=== PATIENT | female | born 2000 ===

== ENCOUNTER 2023-04-19 08:21 | Outpatient (CLI) | payer OTHER | END 2023-04-19 10:41 | disposition home or self-care (01) | LOC: PRENATAL 08:21 | PROVIDERS: ATTEND Obstetrics & Gynecology Maternal & Fetal Medicine | DX: O36.80X0 Pregnancy with inconclusive fetal viability, not applicable or unspecified (principal); Z3A.14 14 weeks gestation of pregnancy ==